=== PATIENT | female | born 1985 | race Caucasian/White ===

== ENCOUNTER → 2024-10-01 | Day surgery (SDC) | payer BC, OTHER ==
[~2024-10-01] MED LIST: ALLEGRA ALLERG180 MG PO; CYMBALTA30 MG PO; FENTANYL CITRATE/PF 100MCG/2 ML INJ ONE; MIDAZOLAM HCL 2 MG/2 ML VIAL ONE; OMEPRAZOLE PO; PROPOFOL IV EMULSION 10 MG/ML 20 ML VIAL ONE; SEASONIQUE 0.11 EACH PO; VALACYCLOVIR500 MG PO; VITAMIN D3125 MCG PO
[2024-10-01] MEDS: LACTATED RINGER'S 1,000 ML ONE (06:27)
[2024-10-01 08:29] VITALS: TEMP 98.9
[2024-10-01 08:50] VITALS: BP 150/90; PULSE 80; RESP 18; O2SAT 100
[2024-10-01 11:25] LABS: CDIFF AG QUIK CHEK NEGATIVE (NEGATIVE); CDIFF TOX QUIK CHEK NEGATIVE (NEGATIVE)
[2024-10-05 09:12] LABS: ENDOMYSIAL ANTIBODIES, IGA Negative (Negative)
[2024-10-05 09:46] LABS: IMMUNOGLOBULIN A 303 mg/dL (87-352); TISSUE TRANSGLUTAMINASE IGA AB <2 U/mL (0-3)
[2024-10-10 07:02] LABS: C-REACTIVE PROTEIN 25
== END | disposition home or self-care (01) ==
LOC: OR 06:00
PROVIDERS: ATTEND Internal Medicine Gastroenterology
DX: K29.50 Unspecified chronic gastritis without bleeding (principal); K63.5 Polyp of colon; K31.7 Polyp of stomach and duodenum; K52.9 Noninfective gastroenteritis and colitis, unspecified; K20.90 Esophagitis, unspecified without bleeding; K31.89 Other diseases of stomach and duodenum; K21.9 Gastro-esophageal reflux disease without esophagitis; K62.89 Other specified diseases of anus and rectum; K64.8 Other hemorrhoids; Z71.3 Dietary counseling and surveillance; Z71.89 Other specified counseling; I10 Essential (primary) hypertension; E78.5 Hyperlipidemia, unspecified; F41.9 Anxiety disorder, unspecified; F32.A Depression, unspecified; F17.290 Nicotine dependence, other tobacco product, uncomplicated; Z88.8 Allergy status to other drugs, medicaments and biological substances; Z01.810 Encounter for preprocedural cardiovascular examination; Z79.899 Other long term (current) drug therapy; Z68.29 Body mass index [BMI] 29.0-29.9, adult
CPT/HCPCS: 43239; 45380; 45385; 81025; 82784; 83516; 83630; 83993; 86140; 86256; 87015; 87045; 87177; 87207; 87324; 87328; 87449; 93005; J2250; J2470; J2704; J3010; J7121; 45378

== ENCOUNTER → 2024-11-03 | Outpatient (REF) | payer BC ==
[~2024-11-03] MED LIST changes: -FENTANYL CITRATE/PF 100MCG/2 ML INJ ONE; -MIDAZOLAM HCL 2 MG/2 ML VIAL ONE; -PROPOFOL IV EMULSION 10 MG/ML 20 ML VIAL ONE
== END ==
LOC: US 07:51
PROVIDERS: ATTEND Nurse Practitioner
DX: R10.11 Right upper quadrant pain (principal)
CPT/HCPCS: 76700